=== PATIENT | male | born 1995 | race African-American/Black ===

== ENCOUNTER 2018-10-27 12:00 | Emergency (ER) | payer MEDICAID, OTHER ==
[~2018-10-27] VITALS: Ht 177.8 cm; Wt 63.5 kg
[2018-10-27 12:00] VITALS: BP 0/0
[2018-10-27] MEDS ORDERED: EPINEPHrine HCL 1 MG/10 ML SYRG IV ONE (12:01)
[2018-10-27] MEDS ORDERED: AMIODARONE HCL (50 MG/ ML) 3 ML VIAL IV ONE (12:01)
[2018-10-27] MEDS ORDERED: ATROPINE SULF 1 MG/10ml SYR IV ONE (12:01)
[2018-10-27] MEDS ORDERED: SODIUM BICARBONATE 8.4% INJ 50ML SYRINGE IV ONE (12:01)
[2018-10-27] MEDS ORDERED: EPINEPHrine HCL 1 MG/10 ML SYRG ONE (12:15)
== END 2018-10-27 15:34 | disposition expired ==
LOC: ER 12:00 → EDBD 12:00 → ER 15:34
DX: I46.9 Cardiac arrest, cause unspecified (principal); R41.82 Altered mental status, unspecified
CPT/HCPCS: 31500; 92950; 99285; J0171; J0282